=== PATIENT | male | born 1930 | race Two or more races ===

== ENCOUNTER 2018-06-27 09:34 | Emergency (ER) | payer OTHER ==
[~2018-06-27] VITALS: Ht 172.7 cm; Wt 86.2 kg
[2018-06-27] MEDS ORDERED: GLIPIZIDE ER2.5 MG PO (09:56)
[2018-06-27] MEDS ORDERED: PROTONIX20 MG PO (09:57)
[2018-06-27] MEDS ORDERED: SYNTHROID100 MCG PO (09:57)
[2018-06-27] MEDS ORDERED: ARICEPT10 MG PO (10:01)
[2018-06-27] MEDS ORDERED: DICLOFENAC POTA50 MG PO (13:05)
== END 2018-06-27 13:11 | disposition home or self-care (01) ==
LOC: ER 09:34
DX: S22.42XA Multiple fractures of ribs, left side, initial encounter for closed fracture (principal); W01.198A Fall on same level from slipping, tripping and stumbling with subsequent striking against other object, initial encounter; Y93.01 Activity, walking, marching and hiking; Y92.018 Other place in single-family (private) house as the place of occurrence of the external cause; Y99.8 Other external cause status

== ENCOUNTER 2019-08-19 07:01 | Emergency (ER) | payer OTHER ==
[~2019-08-19] VITALS: Ht 170.2 cm; Wt 81.6 kg
[~2019-08-19 07:01] MED LIST: ARICEPT10 MG PO; DICLOFENAC POTA50 MG PO; GLIPIZIDE ER2.5 MG PO; PROTONIX20 MG PO; SYNTHROID100 MCG PO
[2019-08-19] MEDS ORDERED: NORVASC5 MG PO (07:38)
== END 2019-08-19 13:01 | disposition home or self-care (01) ==
LOC: ER 07:01 → CPU-OBS 07:21 → ER 13:01
DX: R07.89 Other chest pain (principal); R10.13 Epigastric pain